=== PATIENT | male | born 1970 | race Caucasian/White ===

== ENCOUNTER → 2017-03-24 | Outpatient (CLI) | payer BC ==
--- NOTE | 2017-03-24 09:38 | DIAGNOSTIC IMAGING REPORT ---
CHEST 2 VIEWS ROUTINE CLINICAL HISTORY: Cough and chest pain. COMPARISON STUDY: No previous studies for comparison. FINDINGS: Lung volumes are normal. Lungs are clear with the exception of mild left basilar opacity suggestive of atelectasis. No evidence for pulmonary edema. Cardiac size is normal. There is apparent irregularity of the tracheal air column along the right aspect of the trachea, just below level of the thoracic inlet. IMPRESSION: 1. Irregular contour of the right aspect of the trachea just below level of the thoracic inlet. This is of questionable significance. This may reflect artifact, a goiter or other mediastinal abnormality. A follow-up chest CT with contrast is recommended. 2. No acute cardiopulmonary findings. Electronically signed by: Andre Ortega M.D. 03/24/2017 9:37 AM Dictated Date/Time: 03/24/2017 9:31 AM
== END | disposition home or self-care (01) ==
LOC: C.RAD1850 09:21
PROVIDERS: ATTEND Student in an Organized Health Care Education/Training Program
DX: R05 Cough (principal); R07.9 Chest pain, unspecified

== ENCOUNTER → 2017-03-25 | Outpatient (CLI) | payer BC ==
[~2017-03-25] MED LIST: OPTIRAY 320 IV PRN
--- NOTE | 2017-03-25 08:19 | DIAGNOSTIC IMAGING REPORT ---
CT SCAN OF THE CHEST WITH IV CONTRAST CLINICAL HISTORY: Atypical chest pain. Cough. Tracheal abnormality questioned by chest x-ray. COMPARISON STUDY: Chest x-ray dated 03/24/2017. TECHNIQUE: Following the IV administration of 93 cc of Optiray 320, CT scan of the thorax was performed from the thoracic inlet to the upper abdomen. Images are reviewed in the axial, sagittal, and coronal planes. IV contrast was administered without complication. A dose lowering technique was utilized adhering to the principles of ALARA. CT DOSE: 503.11 mGy.cm FINDINGS: Thyroid: Imaged portions of the thyroid gland are normal in size and attenuation. Thoracic aorta: The thoracic aorta is normal in caliber and demonstrates 4-vessel variant arch anatomy. No dissection is seen. Pulmonary vasculature: The main pulmonary arteries are dilated suggesting pulmonary artery hypertension. There are no filling defects identified in the central pulmonary vessels to indicate pulmonary embolus. Note that this examination was not protocoled for evaluation of the pulmonary arteries. Heart: The heart is top normal in size and without pericardial effusion. Lungs and pleural spaces: The lungs and pleural spaces are clear noting dependent atelectasis. The trachea and central airways are patent. There is mild irregularity of the tracheal wall with no evidence of mass lesion or acute abnormality. This likely corresponds to adenopathy seen by chest x-ray. Mediastinum: There are scattered subcentimeter mediastinal lymph nodes. These are not pathologically enlarged by size criteria. [place]: Clear. Axillae: There is no axillary lymphadenopathy. Upper abdomen: There is a tiny hiatal hernia. The liver appears enlarged and steatotic. There is an 11 mm hypervascular focus in the right lobe seen on image #305. Skeletal structures: No lytic or blastic bony lesions are seen. IMPRESSION: 1. There is no airspace consolidation or pleural effusion. 2. There is mild irregularity of the tracheal wall at the level of the thoracic inlet, which likely corresponds to the abnormality suggested by chest x-ray. There is no corresponding mass lesion and this is of indeterminant but doubtful clinical significance. 3. Hepatic steatosis. 4. There is an 11 mm hypervascular focus in the right hepatic lobe, likely representing a flash filling hemangioma. Ultrasound could be considered for further assessment if clinically warranted. 5. Additional findings as above. Electronically signed by: Julito Agosto M.D. 03/25/2017 8:17 AM Dictated Date/Time: 03/25/2017 8:10 AM
== END | disposition home or self-care (01) ==
LOC: C.CTS 07:11
PROVIDERS: ATTEND Student in an Organized Health Care Education/Training Program
DX: R07.9 Chest pain, unspecified (principal); R05 Cough; R93.8 Abnormal findings on diagnostic imaging of other specified body structures; K76.0 Fatty (change of) liver, not elsewhere classified; R91.8 Other nonspecific abnormal finding of lung field

== ENCOUNTER 2018-12-28 14:19 | Inpatient (IN) ==
--- OUTSIDE RECORDS SUMMARY | 2018-12-28 14:22 | External Medical Summary | Continuity of Care Document ---
:1970 Author Name Kaylee Murdock, Provider Address Unavailable Unavailable , Care Team Providers Name Role Phone David Murdock, Etienne Grossman Unavailable [email or web address], [email or web address] Unavailable Unavailable Unavailable Unavailable Unavailable Problems Active medical history not documented Allergies and Adverse Reactions Allergy history not documented Medications Medications not documented Procedures Procedures not documented Immunizations Immunizations not documented Plan of Treatment Planned Observations Planned Goals not documented Results No Known Results Results not documented Encounters Appointment; Etienne Hernandez M.D. 24-Apr-2018 8:30 Encounter Diagnosis: Problem not documented
[2018-12-28] MEDS ORDERED: KETOROLAC TROMETHAMINE 15 MG/ML VIAL IV STA (14:47)
[2018-12-28] MEDS ORDERED: ONDANSETRON INJ 2 MG/ML 2 ML VIAL IV STA (14:47)
[2018-12-28] MEDS ORDERED: SODIUM CHLORIDE 0.9% 1000ML 1,000 ML IV ONE (14:47)
[2018-12-28 15:27] LABS: Basophils # (auto) 0.02 K/uL (0-0.2); Basophils % (auto) 0.2 %; Eosinophils # (auto) 0.05 K/uL (0-0.5); Eosinophils % (auto) 0.4 %; Hematocrit (blood only) 51.3 % (42-52); Hemoglobin 18.7 g/dL (14.0-18.0); Immature Granulocytes # (auto) 0.05 K/uL (0.00-0.02); Immature Granulocytes % (auto) 0.4 %; Lymphocytes # (auto) 1.76 K/uL (1.2-3.4); Lymphocytes % (auto) 13.8 %; Mean Corpuscular Hemoglobin 32.5 pg (25-34); Mean Corpuscular Hgb Conc 36.5 g/dL (32-36); Mean Corpuscular Volume 89.1 fL (80-100); Mean Platelet Volume 10.6 fL (7.4-10.4); Monocytes # (auto) 1.01 K/uL (0.11-0.59); Monocytes % (auto) 7.9 %; Neutrophils # (auto) 9.86 K/uL (1.4-6.5); Neutrophils % (auto) 77.3 %; Platelet Count 288 K/uL (130-400); RDW Coefficient of Variation 13.5 % (11.5-14.5); Red Blood Count 5.76 M/uL (4.7-6.1); White Blood Count 12.75 K/uL (4.8-10.8)
--- NOTE | 2018-12-28 15:36 | XRay Report ---
XR abdomen 2V w PA chest CLINICAL HISTORY: vomitting nausea COMPARISON STUDY: No previous studies for comparison. FINDINGS: No acute process the chest. Lungs are clear. Mildly distended loop of small bowel within the upper central abdomen. Unremarkable bowel content wit hin the colon. IMPRESSION: Mild nonobstructive small bowel ileus. Negative chest. The above report was generated using voice recognition software. It may contain grammatical, syntax or spelling errors. Electronically signed by: Matthew Sutherland M.D. 12/28/2018 3:34 PM
[2018-12-28 15:46] LABS: Albumin Level 3.7 gm/dl (3.4-5.0); BUN Creatinine Ratio 16.3 (10-20); Bilirubin Direct 0.2 mg/dl (0-0.2); Calcium 8.9 mg/dl (8.5-10.1); Creatinine Clr Calc Pharmacy 102.7 ml/min; Est GFR (African American) 97.3; Est GFR (Non-African American) 83.9; Potassium 3.6 mmol/L (3.5-5.1)
[2018-12-28] MEDS ORDERED: IOVERSOL 100ml IV PRN (16:49)
--- NOTE | 2018-12-28 16:59 | CT Scan Report ---
CT abd pelvis IV con only CLINICAL HISTORY: epigastric pain COMPARISON STUDY: None. TECHNIQUE: The patient was scanned in a dynamic helical fashion during intravenous administration of 93 cc Optiray 2020. A dose lowering technique was utilized adhering to the principles of ALARA. CT DOSE: 634.08 mGy.cm FINDINGS: Lower chest: There are mild dependent atelectatic changes. Liver: There is probable mild hepatic steatosis. No focal hepatic masses are visualized. The hepatic and portal veins appear patent. Gallbladder: Unremarkable. Spleen: Normal in size and attenuation. Pancreas: Unremarkable. Adrenal glands: Unremarkable. Kidneys: There is symmetric renal cortical enhancement. The kidneys are normal in size without hydron ephrosis. Bowel: There are multiple fluid-filled small bowel loops. There is mild small bowel mesenteric edema. There are areas of small bowel wall thickening. There is a possible entero-enteral fistula within th e pelvis. The findings raise the possibility of Crohn's disease. Clinical correlation in this regard is advocated. A minimal chronic partial small bowel obstruction is suspected. There is no evidence of a high-grade bowel obstruction. There is no evidence of acute sinusitis. Peritoneum: There is no intraperitoneal free air or abdominal ascites. There is a small fat-containin g umbilical hernia. There is a fat-containing left inguinal hernia. Vasculature: The abdominal aorta is normal in course and caliber. Adenopathy: None. Pelvic viscera: The bladder, and pelvic viscera are unremarkable. Skeletal structures: No destructive osseous lesions are seen. IMPRESSION: 1. Mildly dilated fluid-filled small bowel loops. 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 Addition there is mild small bowel mesenteric edema. A minimal chronic low-grade small bowel obstruction is suspected. There is no current evidence for hi gh-grade bowel obstruction. 2. Although nonspecific, the constellation of findings raises the possibility of Crohn's disease. GI consultation should be considered in follow-up 3. No evidence of acute appendicitis. No evidence of abscess. Electronically signed by: Sagar Reilly M.D. 12/28/2018 4:58 PM
[2018-12-28] MEDS ORDERED: methylPREDNISolone 125 MG/2 ML VIAL IV STA (17:22)
[2018-12-28] MEDS ORDERED: SODIUM CHLORIDE 0.9% 1000ML 1,000 ML IV SCH (17:30)
[2018-12-28] MEDS ORDERED: LORazepam 0.5 MG/1 ML VIAL IV STA (17:30)
--- NOTE | 2018-12-28 17:55 | Emergency Department Note ---
Entered by Monique Woods acting as a scribe for Blayne Sigala History of Present Illness General Chief complaint: Abdominal Pain Stated complaint: VOMITING Time Seen by Provider: 12/28/18 14:43 Source: patient History of Present Illness Onset (ago): day(s) 2 Location: abdomen Pain Consistency: + other (episode) Maximum Pain Intensity: 4 Quality: + other (abdominal pain) Associated symptoms: + nausea/vomiting and + other (+back pain; -black stool; - fever; -dysuria; -hematuria ) The patient is a 48 year old male, with past medical history of Crohn's and pancreatitis, who presents to the Emergency Room with complaints of an episode of abdominal pain that started two days ago following an episode of bad vomiting. Pain is moderate in nature and located in the epigastric area. He states that the pain radiates to his back. States the pain is similar to his previous pancreatitis episodes. The patient denies blood in stool different than baseline. The patient also denies black stool, a fever, dysuria, or hematuria. The patient states his GI specialist is Dr. Dumont, and he states he takes Remicade for Crohns. The patient also notes of back pain that the patient reports is currently located in the same area where his pancreas flared up in the past. The patient denies drinking alcohol or eating anything differently over the weekend. The patient notes he still has his gall bladder. Home Medications Home Medications Medication Instructions Recorded Confirmed Type budesonide [Uceris] 9 mg PO DAILY PRN 12/28/18 12/28/18 History infliximab [Remicade] 0 mg IV .[id number] 12/28/18 12/28/18 History Allergies Allergy/AdvReac Type Severity Reaction Status Date / Time Penicillins Allergy Intermediate RASH Verified 12/28/18 16:51 Past Med/Surg History Medical History Crohn's disease Pancreatitis Family History Other No significant family history Social History Preferred Language: Estonian Feels Safe at Home: Yes Smoking Status: Never smoker Review of Systems See HPI for pertinent positives & negatives. and A total of 10 systems reviewed and were otherwise negative Physical Exam Vital Signs Vital Signs - 24 hr 12/28/18 14:24 Temperature 36.5 C Temperature Source Oral Sepsis Recent Fever Within 48 Hours No Sepsis New/Unexplained Change in Mental Status No Sepsis Action Taken by Nursing No Action Required Pulse Rate 114 H Respiratory Rate 20 Respiratory Effort / Characteristics Non-Labored Respiratory Depth Normal Blood Pressure 135/90 Blood Pressure Mean 105 Pulse Oximetry 96 Oxygen Delivery Method Room Air GENERAL: He is oriented to person, place, and time. He appears well-developed and well-nourished. He does not appear distressed. HENT: Exam performed. - Head: Normocephalic and atraumatic. - Right Ear: External ear normal. No mastoid tenderness. - Left Ear: External ear normal. No mastoid tenderness. - Mouth/Throat: The oropharynx is clear and moist. No trismus in the jaw. No de ntal abscesses or uvula swelling. No oropharyngeal exudate or tonsillar abscesses. EYES: Conjunctivae and EOM are normal. Pupils are equal, round, and reactive to light. Right eye exhibits no discharge. Left eye exhibits no discharge. No scleral icterus. NECK: Normal range of motion. Neck supple. No JVD present. No spinous process tenderness present. No carotid bruit present. No rigidity. No tracheal deviation and normal range of motion present. No Brudzinski's sign and no Kernig's sign noted. CV: Normal rate, regular rhythm, normal heart sounds and intact distal pulses. There is no peripheral edema. Palpable radial pulses bue. PULM/CHEST: Effort normal and breath sounds normal. No respiratory distress. No stridor. He has no wheezes. He has no rales. - Chest Wall: He exhibits no tenderness. ABD: The abdomen is soft. Bowel sounds are normal. He has no distension. No mass is present. Pain on palpation to epigastric area. There is no rebound, no guarding, no Dominguez's sign and no tenderness at McBurney's point. Rovsig negative. MUSC/SKEL: Normal range of motion. There is no peripheral edema, tenderness or deformity. LYMPH: No cervical adenopathy. NEURO: He is alert and oriented to person, place, and time. He has normal strength. No cranial nerve deficit or sensory deficit. Coordination and gait normal. GCS eye subscore is 4. GCS verbal subscore is 5. GCS motor subscore is 6. Cerebellar tests wnl. SKIN: Skin is warm and dry. He is not diaphoretic. PSYCH: He has a normal mood and affect. Behavior is normal. Judgment and thought content normal. Course 1444: Past medical records reviewed. The patient was evaluated in room C12B. A complete history and physical exam was performed. 1549: The patient's vital signs are stable. Labs within normal limits. Lipase within normal limits. X-ray shows ileus. The patient is requesting CT scan of abdomen due to increasing abdominal pain. Will conduct CT. 1720: Vital signs stable. CT of the abdomen shows partial small bowel obstruction. 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 No pancreatitis. I discussed the patient's case with Dr. Marin. Dr. Dumont advises to admit the patient into hospital and to give the patient Solumedrol. I discussed the patient's [facility]. Dr. Jacinto will further evaluate the patient. Consultations Consultation #1: I discussed the patient's case with Dr. Marin. Dr. Dumont advises to admit the patient into hospital and to give the patient Solumedrol. Time: 17:20 Consultation #2: I discussed the patient's [facility]. Dr. Jacinto will further evaluate the patient. Time: 17:30 Administered Medications Sodium Chloride (Nss 1000ml) 1,000 mls @ 125 mls/hr IV .Q8H ALONSO Stop: 01/27/19 17:29 Last Admin: 12/28/18 17:43 Dose: 125 mls/hr Documented by: [id number] Ioversol (Optiray 320 100ml) 93 ml IV ONCE PRN PRN Reason: Interaction Checking Stop: 01/01/19 16:48 Last Admin: 12/28/18 16:49 Dose: 93 ml Documented by: [id number] Discontinued Medications Sodium Chloride (Nss 1000ml) 1,000 mls @ 999 mls/hr IV .Q1H1M ONE Stop: 12/28/18 15:47 Last Infusion: 12/28/18 17:13 Dose: 0 mls/hr Documented by: [id number] Admin: 12/28/18 15:37 Dose: 999 mls/hr Documented by: [id number] Lorazepam (Ativan) 0.5 mg in 1 mls @ 1 mls/min IV NOW STA Stop: 12/28/18 17:31 Last Admin: 12/28/18 17:43 Dose: 1 mls/min Documented by: [id number] Ketorolac Tromethamine (Toradol) 15 mg IV NOW STA Stop: 12/28/18 14:48 Last Admin: 12/28/18 15:37 Dose: 15 mg Documented by: [id number] Methylprednisolone (Solumedrol) 125 mg IV NOW STA Stop: 12/28/18 17:23 Last Admin: 12/28/18 17:44 Dose: 125 mg Documented by: [id number] Ondansetron HCl (Zofran) 4 mg IV NOW STA Stop: 12/28/18 14:48 Last Admin: 12/28/18 15:37 Dose: 4 mg Documented by: [id number] Medical Decision Making Medical Records Attestation: I reviewed the patient's medical records. Home Medications Current Medication List: was personally reviewed by me Laboratory Data Attestation: I reviewed the patient's lab results. Result diagrams: 12/28/18 15:12 12/28/18 15:12 Lab Results 12/28/18 12/28/18 Range/Units 15:12 15:12 WBC 12.75 H (4.8-10.8) K/uL RBC 5.76 (4.7-6.1) M/uL Hgb 18.7 H (14.0-18.0) g/dL Hct 51.3 (42-52) % MCV 89.1 (80-100) fL MCH 32.5 (25-34) pg MCHC 36.5 H (32-36) g/dL RDW Std Deviation 44.0 (36.4-46.3) fL RDW Coeff of Raoul 13.5 (11.5-14.5) % Plt Count 288 (130-400) K/uL MPV 10.6 H (7.4-10.4) fL Immature Gran % (Auto) 0.4 % Neut % (Auto) 77.3 % Lymph % (Auto) 13.8 % [place] % (Auto) 7.9 % Eos % (Auto) 0.4 % Baso % (Auto) 0.2 % Immature Gran # (Auto) 0.05 H (0.00-0.02) K/uL Neut # (Auto) 9.86 H (1.4-6.5) K/uL Lymph # (Auto) 1.76 (1.2-3.4) K/uL [place] # (Auto) 1.01 H (0.11-0.59) K/uL Eos # (Auto) 0.05 (0-0.5) K/uL Baso # (Auto) 0.02 (0-0.2) K/uL Sodium 137 (136-145) mmol/L Potassium 3.6 (3.5-5.1) mmol/L Chloride 103 (98-107) mmol/L Carbon Dioxide 26 (21-32) mmol/L Anion Gap 8.0 (3-11) BUN 17 (7-18) mg/dl Creatinine 1.04 (0.6-1.4) mg/dl Est Cr Clr Drug Dosing 102.7 ml/min Est GFR ( Amer) 97.3 Est GFR (Non-Af Amer) 83.9 BUN/Creatinine Ratio 16.3 (10-20) Glucose 105 H (70-99) mg/dl Calcium 8.9 (8.5-10.1) mg/dl Total Bilirubin 1.0 (0.2-1) mg/dl Direct Bilirubin 0.2 (0-0.2) mg/dl AST 16 (15-37) U/L ALT 40 (12-78) U/L Alkaline Phosphatase 104 (45-117) U/L Total Protein 8.0 (6.4-8.2) gm/dl Albumin 3.7 (3.4-5.0) gm/dl Lipase 65 L (73-393) U/L Imaging Data Radiologist's Impression: Radiology results as stated below per my review and t he radiologist's interpretation: XR abdomen 2V w PA chest CLINICAL HISTORY: vomitting nausea COMPARISON STUDY: No previous studies for comparison. FINDINGS: No acute process the chest. Lungs are clear. Mildly distended loop of small bowel within the upper central abdomen. Unremarkable bowel content within the colon. IMPRESSION: Mild nonobstructive small bowel ileus. Negative chest. The above report was generated using voice recognition software. It may contain grammatical, syntax or spelling errors. Electronically signed by: Matthew Sutherland M.D. 12/28/2018 3:[address] abd pelvis IV con only CLINICAL HISTORY: epigastric pain COMPARISON STUDY: None. TECHNIQUE: The patient was scanned in a dynamic helical fashion during intr avenous administration of 93 cc Optiray 2020. A dose lowering technique was utilized adhering to the principles of ALARA. CT DOSE: 634.08 mGy.cm FINDINGS: Lower chest: There are mild dependent atelectatic changes. Liver: There is probable mild hepatic steatosis. No focal hepatic masses are vis ualized. The hepatic and portal veins appear patent. Gallbladder: Unremarkable. Spleen: Normal in size and attenuation. Pancreas: Unremarkable. Adrenal glands: Unremarkable. Kidneys: There is symmetric renal cortical enhancement. The kidneys are normal in size without hydronephrosis. Bowel: There are multiple fluid-filled small bowel loops. There is mild small bowel mesenteric edema. There are areas of small bowel wall thickening. There is a possible entero-enteral fistula within the pelvis. The findings raise the possibility of Crohn's disease. Clinical correlation in this regard is adv ocated. A minimal chronic partial small bowel obstruction is suspected. There is no evidence of a high-grade bowel obstruction. There is no evidence of acute sinusitis. Peritoneum: There is no intraperitoneal free air or abdominal ascites. There is a small fat-containing umbilical hernia. There is a fat-containing left inguinal hernia. Vasculature: The abdominal aorta is normal in course and caliber. Adenopathy: None. Pelvic viscera: The bladder, and pelvic viscera are unremarkable. Skeletal structures: No destructive osseous lesions are seen. IMPRESSION: 1. Mildly dilated fluid-filled small bowel loops. 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 Addition there is mild small bowel mesenteric edema. A minimal chronic low-grade small bowel obstruction is suspected. There is no current evidence for high-grade bowel obstruction. 2. Although nonspecific, the constellation of findings raises the possibility of Crohn's disease. GI consultation should be considered in follow-up 3. No evidence of acute appendicitis. No evidence of abscess. Electronically signed by: Sagar Reilly M.D. 12/28/2018 4:58 PM Blood Pressure Blood Pressure Findings: Elevated blood pressure Blood Pressure Disposition: elevated BP felt to be situational [facility] Narrative 1444: Past medical records reviewed. The patient was evaluated in room C12B. A complete history and physical exam was performed. 1549: The patient's vital signs are stable. Labs within normal limits. Lipase within normal limits. X-ray shows ileus. The patient is requesting CT scan of abdomen due to increasing abdominal pain. Will conduct CT. 1720: Vital signs stable. CT of the abdomen shows partial small bowel obstruction. 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 No pancreatitis. I discussed the patient's case with Dr. Dumont-GI. Dr. Dumont advises to admit the patient into hospital and to give the patient Solumedrol. I discussed the patient's case with Dr. Jacinto-Hospitalist [facility]. Dr. Jacinto will further evaluate the patient. Impression & Plan Small bowel obstruction, Entero-enteric fistula, Crohn's disease, acute Discharge Plan Visit Data Chief Complaint: Abdominal Pain Stated Complaint: VOMITING ED Provider: Blayne Sigala Discharge Problem: Small bowel obstruction, Entero-enteric fistula, Crohn's disease, acute Patient Disposition: Being Evaluated by Hospitalist Forms Stand Alone Forms: Call Back Authorization, [facility] Prescriptions Prescriptions: No Action Remicade 100 mg Recon Soln IV .[id number] RF: 0 budesonide [Uceris] 9 mg Tablet,Delayed And Ext.Release 9 mg PO DAILY PRN (Reason: flares) RF: 0 Referrals Referrals: PCP,NO [Primary Care Provider] - Discharge Problem: Crohn's disease, acute Qualifiers: Digestive disease complication type: unspecified complication Qualified C ode(s): K50.919 - Crohn's disease, unspecified, with unspecified complications The scribe's documentation has been prepared under my direction and personally reviewed by me in its entirety. I confirm that the note above accurately reflects all work, treatment, procedures, and medical decision making performed by me.
--- NOTE | 2018-12-28 18:10 | History & Physical Report ---
Date of Service December 28, 2018 Assessment & Plan (1) Small bowel obstruction: (2) Entero-enteric fistula: (3) Crohn's disease, acute: (4) Abdominal pain: (5) Diarrhea: Admit the patient to medical floor. Add IV fluids. Keep the patient n.p.o. Add IV Solu-Medrol. Add IV Pepcid. Zofran as needed for nausea vomiting and Dilaudid for pain control. Repeat labs in a.m. GI was consulted. Further plan per GI. CODE STATUS full code. Subcu heparin for DVT prophylaxis. History of Present Illness Primary Care Provider: NO PCP The patient is a 48 year old male, with past medical history of Crohn's and pancreatitis, who presents to the Emergency Room with complaints of an episode of abdominal pain that started two days ago following an episode of bad vomiting. Pain is moderate in nature and located in the epigastric area. He states that the pain radiates to his back. States the pain is similar to his previous pancreatitis episodes. The patient denies blood in stool different than baseline. The patient also denies black stool, a fever, dysuria, or hematuria. The patient states his GI specialist is Dr. Dumont, and he states he takes Remicade for Crohns. The patient also notes of back pain that the patient reports is currently located in the same area where his pancreas flared up in the past. The patient denies drinking alcohol or eating anything differently over the weekend. The patient notes he still has his gall bladder. The further work-up done in the ER shows that patient has possible bowel obstruction with enteroenteric fistula. He will be admitted for further evaluation and management. Gastroenterology was notified. Allergies Allergy/AdvReac Type Severity Reaction Status Date / Time Penicillins Allergy Intermediate RASH Verified 12/28/18 16:51 Home Medications Home Medications Medication Instructions Recorded Confirmed Type budesonide [Uceris] 9 mg PO DAILY PRN 12/28/18 12/28/18 History infliximab [Remicade] 0 mg IV .[id number] 12/28/18 12/28/18 History Past Med/Surg History Medical History Crohn's disease Pancreatitis Family History Other No significant family history Social History Preferred Language: [place] Feels Safe at Home: Yes Smoking Status: Never smoker Review of Systems Review of Systems: All systems reviewed & are unremarkable except as noted in HPI & below Gastrointestinal: + abdominal pain, + nausea, + cramping, + change in stools and + diarrhea/loose stools Physical Exam Physical Exam: GENERAL : No acute distress EYES: No icterus, gaze conjugate NOSE: No evidence of epistaxis MOUTH: No lesions or candidiasis, mucosa moist NECK: Supple LUNGS: CTA B/L, no wheezes, rales or rhonchi HEART: Regular, rate controlled ABDOMEN: Soft, NT, ND, BS Present EXTREMITIES: No LE edema, pedal pulses intact NEURO: A&OX3 Results & Data Vital Signs (Past 12 Hours) Vital Signs Temp Pulse Resp BP Pulse Ox 12/28/18 14:24 97.7 F 114 H 20 135/90 96 Laboratory Results 12/28/18 15:12 12/28/18 15:[address] DOSE: 634.08 mGy.cm FINDINGS: Lower chest: There are mild dependent atelectatic changes. Liver: There is probable mild hepatic steatosis. No focal hepatic masses are visualized. The hepatic and portal veins appear patent. Gallbladder: Unremarkable. Spleen: Normal in size and attenuation. Pancreas: Unremarkable. Adrenal glands: Unremarkable. Kidneys: There is symmetric renal cortical enhancement. The kidneys are normal in size without hydronephrosis. Bowel: There are multiple fluid-filled small bowel loops. There is mild small bowel mesenteric edema. There are areas of small bowel wall thickening. There is a possible entero-enteral fistula within the pelvis. The findings raise the possibility of Crohn's disease. Clinical correlation in this regard is advocated. A minimal chronic partial small bowel obstruction is suspected. There is no evidence of a high-grade bowel obstruction. There is no evidence of acute sinusitis. Peritoneum: There is no intraperitoneal free air or abdominal ascites. There is a small fat-containing umbilical hernia. There is a fat-containing left inguinal hernia. Vasculature: The abdominal aorta is normal in course and caliber. Adenopathy: None. Pelvic viscera: The bladder, and pelvic viscera are unremarkable. Skeletal structures: No destructive osseous lesions are seen. IMPRESSION: 1. Mildly dilated fluid-filled small bowel loops. Areas of mild small bowel wall thickening with a possible enteroenteric fistula within the pelvis. Addition there is mild small bowel mesenteric edema. A minimal chronic low-grade small bowel obstruction is suspected. There is no current evidence for high-grade bowel obstruction. 2. Although nonspecific, the constellation of findings raises the possibility of Crohn's disease. GI consultation should be considered in follow-up 3. No evidence of acute appendicitis. No evidence of abscess. XR abdomen 2V w PA chest CLINICAL HISTORY: vomitting nausea COMPARISON STUDY: No previous studies for comparison. FINDINGS: No acute process the chest. Lungs are clear. Mildly distended loop of small bowel within the upper central abdomen. Unremarkable bowel content within the colon. IMPRESSION: Mild nonobstructive small bowel ileus. Negative chest. Code Status & VTE Plan Code Status Full code VTE Prophylaxis Plan VTE Prophylaxis will be ordered: Yes PG Care Time/CCT Total # of Minutes Spent Total Time Spent with Patient: Total time spent is greater than 50% in coordination of care (as documented) at patient's floor/unit and/or counseling patient: (1) Crohn's disease, acute Digestive disease complication type: unspecified complication Qualified Code(s): K50.919 - Crohn's disease, unspecified, with unspecified complications
[2018-12-28] MEDS: SODIUM CHLORIDE 0.9% 1000ML 1,000 ML IV SCH (19:40)
[2018-12-28] MEDS ORDERED: HYDROmorphone INJ 0.5 MG/0.5 ML SYR IV PRN (19:49)
[2018-12-28] MEDS ORDERED: ONDANSETRON INJ 2 MG/ML 2 ML VIAL IV PRN (19:49)
[2018-12-28] MEDS: FAMOTIDINE 20 MG in SYRINGE 3 ML IV SCH (21:32)
[2018-12-28] MEDS: methylPREDNISolone 40 MG in SYRINGE 0 ML IV SCH (21:32)
[2018-12-28] MEDS: HEPARIN SOD 5,000 UNIT/0.5 ML VIAL SQ SCH (21:38)
[2018-12-29] MEDS: SODIUM CHLORIDE 0.9% 1000ML 1,000 ML IV SCH ×5 (00:48→23:53)
[2018-12-29 05:35] LABS: Hematocrit (blood only) 46.4 % (42-52); Hemoglobin 15.7 g/dL (14.0-18.0); Mean Corpuscular Hemoglobin 31.3 pg (25-34); Mean Corpuscular Hgb Conc 33.8 g/dL (32-36); Mean Corpuscular Volume 92.6 fL (80-100); Mean Platelet Volume 10.7 fL (7.4-10.4); Platelet Count 253 K/uL (130-400); RDW Coefficient of Variation 13.4 % (11.5-14.5); RDW Standard Deviation 45.4 fL (36.4-46.3); Red Blood Count 5.01 M/uL (4.7-6.1); White Blood Count 9.28 K/uL (4.8-10.8)
[2018-12-29] MEDS: HEPARIN SOD 5,000 UNIT/0.5 ML VIAL SQ SCH ×3 (05:46→21:28)
[2018-12-29] MEDS: methylPREDNISolone 40 MG in SYRINGE 0 ML IV SCH ×3 (05:47→21:28)
[2018-12-29 06:20] LABS: Albumin Globulin Ratio 0.8 (0.9-2); BUN Creatinine Ratio 19.8 (10-20); Bilirubin Direct 0.2 mg/dl (0-0.2); Bilirubin,Total 0.6 mg/dl (0.2-1); Calcium 7.6 mg/dl (8.5-10.1); Creatinine Clr Calc Pharmacy 122.8 ml/min; Est GFR (African American) 117.5; Est GFR (Non-African American) 101.3; Globulin 3.8 gm/dl (2.5-4.0); Magnesium 2.1 mg/dl (1.8-2.4); Potassium 4.2 mmol/L (3.5-5.1); Total Protein 6.8 gm/dl (6.4-8.2)
--- NOTE | 2018-12-29 13:02 | Hospitalist Progress Note ---
Date of Service December 29, 2018 Assessment & Plan (1) Crohn's disease, acute: Chronic, patient reports he has flares like this about every 6 months. This time he went 4 days without food or drink and so felt he needed to come to the hospital due to dehydration - continue IVF, solumedrol, IV famotidine - will keep NPO until seen by GI - consulted GI - patient sees Dr. 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 Subcu heparin for DVT prophylaxis. Supervising Physician Co-Signing Physician Notes I personally evaluated the patient and agree with the findings as documented by BARB Roca Subjective Mr. Sherman is feeling much better than when he came in. No nausea or diarrhea. He has had a bowel movement, no blood or black or tarry stools. Mild abd tenderness but no pain. ROS Constitutional: no chills, aches, sweats or fever Respiratory: no sob,cough, sputum, or wheezing Cardiac: no chest pain, palpitations, edema, orthopnea or lightheadedness GI: see HPI : no dysuria or hesitancy Extremities: no joint pain or weakness Skin: no rash All other systems reviewed and negative Physical Exam Physical Exam: General: no distress Eyes: normal inspection, PERLL Respiratory: chest non tender, clear to auscultation, normal breath sounds, no respiratory distress, no accessory muscle use Cardiac: regular rate and rhythm, no rub or gallop, no murmur, no edema, no jvd GI/: active bowel sounds, mild abd tenderness, soft, non distended Extremities: normal range of motion, normal strength, non tender Neuro/Psych: alert and oriented x 3, normal mood and affect Skin: normal color, dry Results & Data Vital Signs (Past 12 Hours) Vital Signs Temp Pulse Resp BP Pulse Ox 12/29/18 07:37 36.8 C 88 16 110/70 96 PG Care Time/CCT Total # of Minutes Spent Total Time Spent with Patient: Total time spent is greater than 50% in coordination of care (as documented) at patient's floor/unit and/or counseling patient: (1) Crohn's disease, acute Digestive disease complication type: unspecified complication Qualified Code(s): K50.919 - Crohn's disease, unspecified, with unspecified complications
[2018-12-29] MEDS ORDERED: FLUOXETINE HCL 10 MG CAP PO STA (16:33)
[2018-12-29] MEDS ORDERED: LORazepam 1 MG TAB PO PRN (18:00)
--- NOTE | 2018-12-29 18:22 | Consultation Report ---
DATE OF CONSULTATION: 12/29/2018 REASON FOR CONSULTATION: Crohn's flare with partial bowel obstruction and possible fistula. HISTORY OF PRESENT ILLNESS: The patient is a 48-year-old with Crohn's disease since 1993 involving the small bowel colon and perianal area. He has been maintained on Remicade since 2000 along with 6-mercaptopurine and has done relatively well over the years. He did develop some skin cancers which have been treated. While traveling in [place] on business in 01/2018, he developed acute pancreatitis. It was unclear at that time the etiology, but it was thought that he could have been related to his 6-mercaptopurine and it was discontinued at that time. His triglycerides were only 300 at that time. Calcium was normal. He did not have any gallstones and he was not drinking excessive alcohol at that time. He has had no further episodes of pancreatitis, but he does have episodes of abdominal pain, particularly in his left flank area which he attributed to maybe the pancreatitis and some scar tissue. The patient presented to the hospital last evening after having increased central abdominal pain and then severe vomiting the day prior to that. He was seen in outpatient clinic and then referred to the Emergency Room where he was found to have a white count of over 12,[address] scan that showed multiple strictured areas in the small bowel with some dilated loops and possible enteroenteric fistula in the lower abdomen. The patient was placed on bowel rest and IV Solu-Medrol at 40 mg q. 8 hours and hospitalized for further evaluation. PAST MEDICAL HISTORY: Remarkable for skin cancer, basal cell and squamous cells. He had the pancreatitis a year ago. MEDICATIONS: His only medication is Remicade and Uceris p.r.n. ALLERGIES: PENICILLIN. FAMILY HISTORY: Negative for inflammatory bowel disease. SOCIAL HISTORY: The patient is . He has 2 daughters, works for [employer] and travels extensively with his job. REVIEW OF SYSTEMS: Positive for anxiety and stress related to his job. He did take antidepressants in the past about 10 years ago for 6 months. PHYSICAL EXAMINATION: GENERAL: The patient appears in no acute distress. VITAL SIGNS: Normal. He is afebrile. ABDOMEN: Slightly distended, slightly tympanitic. There is some central abdominal pain. No mass or rebound. Liver and spleen are not enlarged. IMPRESSION: The patient appears to have active small bowel Crohn's disease with multiple strictured areas and some partial bowel obstructions and a possible enteric fistula. It appears that the Remicade has failed after 18-20 years and he has probably developed antibodies to it. For now, we are going to keep him on bowel rest and just clear liquids. HE IS LACTOSE INTOLERANT, and IV fluid support and see if he opens up. He did have a bowel movement earlier today which is encouraging. If he opens up then we will probably switch him to Entyvio as an alternate biologic to see if we can get his disease back into remission. In the meantime, the patient has been started on 10 mg of Prozac and I ordered some lorazepam for anxiety, which appears to be contributing to his stress level as well. I will follow the patient during his hospital stay.
[2018-12-29] MEDS: FAMOTIDINE 20 MG in SYRINGE 3 ML IV SCH (21:28)
[2018-12-30] MEDS: HEPARIN SOD 5,000 UNIT/0.5 ML VIAL SQ SCH ×3 (05:23→22:12)
[2018-12-30] MEDS: SODIUM CHLORIDE 0.9% 1000ML 1,000 ML IV SCH ×3 (05:24→22:03)
[2018-12-30] MEDS: methylPREDNISolone 40 MG in SYRINGE 0 ML IV SCH ×3 (05:25→22:06)
[2018-12-30] MEDS: FLUOXETINE HCL 10 MG CAP PO SCH (08:44)
[2018-12-30 09:10] LABS: Hematocrit (blood only) 45.9 % (42-52); Hemoglobin 16.4 g/dL (14.0-18.0); Mean Corpuscular Hemoglobin 31.9 pg (25-34); Mean Corpuscular Hgb Conc 35.7 g/dL (32-36); Mean Corpuscular Volume 89.3 fL (80-100); Mean Platelet Volume 10.2 fL (7.4-10.4); Platelet Count 285 K/uL (130-400); RDW Coefficient of Variation 13.1 % (11.5-14.5); RDW Standard Deviation 43.2 fL (36.4-46.3); Red Blood Count 5.14 M/uL (4.7-6.1); White Blood Count 13.73 K/uL (4.8-10.8)
[2018-12-30 09:35] LABS: BUN Creatinine Ratio 15.5 (10-20); Calcium 8.4 mg/dl (8.5-10.1); Creatinine Clr Calc Pharmacy 111.2 ml/min; Est GFR (African American) 107.1; Est GFR (Non-African American) 92.4; Potassium 3.6 mmol/L (3.5-5.1)
--- NOTE | 2018-12-30 11:13 | Hospitalist Progress Note ---
Date of Service December 30, 2018 Assessment & Plan (1) Crohn's disease, acute: Chronic, patient reports he has flares like this about every 6 months. This time he went 4 days without food or drink and so felt he needed to come to the hospital due to dehydration - continue IVF, solumedrol, IV famotidine - continue clear liquids - consulted GI - patient sees Dr. 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 Subcu heparin for DVT prophylaxis. Subjective No nausea or vomiting or abdominal pain. Frequent loose stools after po intake. Mostly feels his symptoms have resolved, ROS Constitutional: no chills, aches, sweats or fever Respiratory: no sob,cough, sputum, or wheezing Cardiac: no chest pain, palpitations, edema, orthopnea or lightheadedness GI: see HPI : no dysuria or hesitancy Extremities: no joint pain or weakness Skin: no rash All other systems reviewed and negative Physical Exam Physical Exam: General: no distress Eyes: normal inspection, PERLL Respiratory: chest non tender, clear to auscultation, normal breath sounds, no respiratory distress, no accessory muscle use Cardiac: regular rate and rhythm, no rub or gallop, no murmur, no edema, no jvd GI/: active bowel sounds, no abd pain or tenderness, soft, mild distention Extremities: normal range of motion, normal strength, non tender Neuro/Psych: alert and oriented x 3, normal mood and affect Skin: normal color, dry Results & Data Vital Signs (Past 12 Hours) Vital Signs Temp Pulse Resp BP Pulse Ox 12/30/18 07:47 36.6 C 71 18 127/79 93 12/29/18 23:27 36.6 C 68 16 132/81 94 PG Care Time/CCT Total # of Minutes Spent Total Time Spent with Patient: Total time spent is greater than 50% in coordination of care (as documented) at patient's floor/unit and/or counseling patient: (1) Crohn's disease, acute Digestive disease complication type: unspecified complication Qualified Code(s): K50.919 - Crohn's disease, unspecified, with unspecified complications
[2018-12-30] MEDS: ACETAMINOPHEN 325 MG TAB PO PRN ×2 (14:02→22:18)
--- NOTE | 2018-12-30 16:38 | Progress Note ---
DATE: 12/30/2018 SUBJECTIVE: The patient reports that his abdominal pain has subsided. He is tolerating clear liquids and having some gas and liquid stools. OBJECTIVE: VITAL SIGNS: His blood pressure is 132/79, pulse 66, temperature is 36.5. ABDOMEN: Shows normal bowel sounds. There are no masses or tenderness. He is complaining mostly of low back pain on the left, which he has had for at least a month or two. LABORATORY DATA: His white count is elevated at 13.73 today, hemoglobin 16.4, platelets are 385. He continues to get IV Solu-Medrol. IMPRESSION AND PLAN: The patient's bowel obstruction seems to be improving. I plan on advancing him to a low fiber lactose free diet to see how he tolerates that. If he does, we should be able to work him up as an outpatient. In the meantime, we will get low back films and sacroiliac films and continue the IV steroids.
--- NOTE | 2018-12-30 19:00 | XRay Report ---
XR SI joints min 3V routine CLINICAL HISTORY: low back pain pain COMPARISON: None. DISCUSSION: The bones and joint spaces appear intact. There is no evidence of fracture, dislocation o r bony disease. There is no evidence for soft tissue swelling. IMPRESSION: Negative study. The above report was generated using voice recognition software. It may contain grammatical, syntax or spelling errors. Electronically signed by: Matthew Sutherland M.D. 12/30/2018 6:59 PM
--- NOTE | 2018-12-30 19:00 | XRay Report ---
XR lumbar spine 2-3V CLINICAL HISTORY: back pain pain COMPARISON STUDY: No previous studies for comparison. FINDINGS: Normal study. Vertebral body stature is normal. Disc spaces are well preserved. IMPRESSION: Normal study The above report was generated using voice recognition software. It may contain grammatical, syntax or spelling errors. Electronically signed by: Matthew Sutherland M.D. 12/30/2018 6:58 PM
[2018-12-30] MEDS: FAMOTIDINE 20 MG in SYRINGE 3 ML IV SCH (22:06)
[2018-12-31] MEDS: HEPARIN SOD 5,000 UNIT/0.5 ML VIAL SQ SCH (05:16)
[2018-12-31] MEDS: methylPREDNISolone 40 MG in SYRINGE 0 ML IV SCH (05:17)
[2018-12-31] MEDS: SODIUM CHLORIDE 0.9% 1000ML 1,000 ML IV SCH (05:19)
--- NOTE | 2018-12-31 09:20 | Discharge Summary ---
Date of Service December 31, 2018 Admission HPI Per Admitting Provider The patient is a 48 year old male, with past medical history of Crohn's and pancreatitis, who presents to the Emergency Room with complaints of an episode of abdominal pain that started two days ago following an episode of bad vomiting. Pain is moderate in nature and located in the epigastric area. He states that the pain radiates to his back. States the pain is similar to his previous pancreatitis episodes. The patient denies blood in stool different than baseline. The patient also denies black stool, a fever, dysuria, or hematuria. The patient states his GI specialist is Dr. Dumont, and he states he takes Remicade for Crohns. The patient also notes of back pain that the patient reports is currently located in the same area where his pancreas flared up in the past. The patient denies drinking alcohol or eating anything differently over the weekend. The patient notes he still has his gall bladder. The further work-up done in the ER shows that patient has possible bowel obstruction with enteroenteric fistula. He will be admitted for further evaluation and management. Gastroenterology was notified. Principal Diagnosis Crohn's disesase Discharge Exam Constitutional WD/WN, vitals as above Respiratory normal respiratory effort, lungs clear to auscultation Cardiovascular RRR, no murmur, no edema Gastrointestinal (Abdomen) Inspection/Auscultation: abdomen normal to inspection and normal bowel sounds; abdomen not distended Percussion/Palpation: abdomen soft; abdomen nontender and no guarding Musculoskeletal no cyanosis or clubbing, extremities motor strength 5/5 Skin no rashes, warm and dry Neurologic moves all extremities and awake Psychiatric A+Ox3, euthymic affect Discharge Data Allergies Allergy/AdvReac Type Severity Reaction Status Date / Time Penicillins Allergy Intermediate RASH Verified 12/28/18 16:51 Consultations 12/28/18 17:22 ED Decision to Admit Stat 12/28/18 19:49 Consult Gastroenterology Routine Ordered Studies 12/28/18 15:49 CT abd pelvis IV con only Stat Hospital Course (1) Crohn's disease, acute: Chronic, patient reports he has flares like this about every 6 months. This time he went 4 days without food or drink and so felt he needed to come to the hospital due to dehydration - continue IVF, solumedrol, IV famotidine - per Dr. Dumont, can discharge with 40 mg daily prednisone until his follow up - tolerating low fiber diet - patient feels all his symptoms have resolved. - consulted GI - patient sees Dr. Dumont - considering switch to Entyvio from Remicade - Some leukocytosis yesterday however this is likely secondary to steroid ad ministration. 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 Patient denies pain today. Has been having this back pain on and off for the past year (7) Anxiety: Initiated 10 mg of Prozac - follow with primary (8) DVT prophylaxis: CODE STATUS full code. Subcu heparin for DVT prophylaxis inpatient Total Time Total Time Spent Total Time Spent (In Minutes): greater than 30 minutes Discharge Plan Discharge Items Patient Disposition: Home - Self-Care Reason For Visit: ABD PAIN, CROHNS DISEASE Discharge Diagnosis: Crohns disease Activity: Resume your previous activity Non-emergency contact: Primary Care Provider and Injection Mold Tooling Technician Call non-emergency contact if: you have any medication questions, your symptoms worsen and you have a fever Follow-up/Referrals: Enrique Dumont [Physician] - 01/04/19 11:00 am (Please, follow up with Dr. Dumont on FridayJanuary 04 at 11:00 am. ) Mars Trivedi MD [Primary Care Provider] - Diet: Low Fiber Addtl Attending Provider Instructions: Please follow up with Dr. Dumont and your pcp next week. You will continue on steroids until you see Dr. Dumont and will discuss taper at that time. You will also discuss further medication regimen for Crohn's at that time. Pending Studies at Discharge: No Stand-Alone Forms: Call Back Authorization, [facility], Sm[facility] Cessation Medications and DC Order Prescriptions: New fluoxetine 10 mg Capsule 10 mg PO QAM Qty: 30 RF: 0 prednisone 20 mg tablet 40 mg PO DAILY Qty: 28 RF: 0 Discontinued Remicade 100 mg Recon Soln IV .[id number] RF: 0 budesonide [Uceris] 9 mg Tablet,Delayed And Ext.Release 9 mg PO DAILY PRN (Reason: flares) RF: 0 Discharge Orders: Discharge Order (Routine); Ordered 12/31/18 Ordered By: Essie Pinto/Other Patient Handouts: Fluoxetine Hydrochloride Oral tablet [Depression/Mood Disorders], Disease Crohn Dc Admission Data Admit Date/Time: 12/28/18 17:54 Attending Provider: Ayde Blanco Admit Provider: Kurt Jacinto Primary Care Provider: Mars Trivedi Other Providers: Kurt Jacinto ; Enrique Dumont Other Interventions: Discharge Summary Assessment (RN) Last Done: 12/31/18 09:45 DC Date/Time DO NOT enter until pt leaves facility: 12/31/18 10:22 Supervising Physician Co-Signing Physician Notes I examined and seen patient with BARB Roca and agree with discharge summary.
[2018-12-31] MEDS: FLUOXETINE HCL 10 MG CAP PO SCH (09:57)
== END 2018-12-31 10:22 | disposition home or self-care (01) | DRG 387 ==
LOC: ED 14:19 → SUATTDRO 17:54 → 3W 17:54